=== PATIENT | female | born 1975 | race Caucasian/White ===

== ENCOUNTER → 2022-01-08 09:58 | Outpatient (BNVA) | payer OTHER, SELFPAY | PROVIDERS: Visit Provider Internal Medicine Rheumatology | DX: Z79.899 Other long term (current) drug therapy (principal); R76.8 Other specified abnormal immunological findings in serum; Z82.69 Family history of other diseases of the musculoskeletal system and connective tissue; M54.9 Dorsalgia, unspecified; M45.6 Ankylosing spondylitis lumbar region; M19.90 Unspecified osteoarthritis, unspecified site; M54.89 Other dorsalgia | CPT/HCPCS: 36415; 72040; 72100; 72170; 85651; 86140; 86812 ==

== ENCOUNTER 2023-09-14 09:26 | Outpatient (CLI) | payer OTHER, SELFPAY ==
[2023-09-14 09:39] LABS: Basophils # 0.1 10^3/uL (0.0-0.1); Basophils % 0.9 %; Eosinophils # 0.1 10^3/uL (0.0-0.8); Eosinophils % 1.5 %; Hematocrit 42.5 % (36-47); Lymphocytes # 1.9 10^3/uL (0.8-4.8); Lymphocytes % 24.5 %; Mean Corpuscular HGB Conc 32.9 g/dL (30-55); Mean Corpuscular Volume 94.2 fl (85-98); Mean Platelet Volume 9.5 fL (7.4-10.4); Monocytes # 0.5 10^3/uL (0.2-0.9); Monocytes % 6.9 %; Neutrophils # 5.01 10^3/uL (1.8-7.7); Neutrophils % 66.1 %; Nucleated Red Blood Cells % 0 %; Platelet Count 310 10^3/cmm (157-399); Red Blood Count 4.51 10^6/uL (3.85-5.65); Red Cell Distribution Width 13.3 % (12.1-15.1); White Blood Count 7.58 10^3/uL (3.29-11.43)
[2023-09-14 10:06] LABS: Alanine Aminotransferase 14 U/L (0-33); Albumin Level 4.4 g/dL (3.5-5.2); Alkaline Phosphatase 74 U/L (35-105); Blood Urea Nitrogen 15 mg/dL (6-20); Calcium 9.6 mg/dL (8.5-10.5); Carbon Dioxide 28 mmol/L (22-29); Chloride 100 mmol/L (98-107); Cholesterol 245 mg/dL (0-200); Globulin 3.2 g/dL (1.3-4.6); Glomerular Filtration Rate 66.8 mL/min (90-130); Glucose 89 mg/dL (65-115); HDL Cholesterol 72 mg/dL (60-100); LDL Cholesterol Calculated 154 mg/dL (50-129); LDL HDL Ratio 2.14 RATIO (0.00-3.22); Osmolality Calculated 284 mOsm/kg (285-295); Sodium 137 mmol/L (136-145); Total Bilirubin 0.4 mg/dL (0.15-1.2); Total Protein 7.6 g/dL (6.6-8.7); Triglycerides 93 mg/dL (0-150)
[2023-09-14 10:13] LABS: Anion Gap 13.8 (5-19); Aspartate Amino Transferase 23 U/L (0-32); Potassium 4.8 mmol/L (3.5-5.1)
[2023-09-14 10:38] LABS: Thyroid Stimulating Hormone 1.81 uIU/mL (0.27-4.20)
== END 2023-09-14 09:27 | disposition home or self-care (01) ==
LOC: LAB 09:27
PROVIDERS: PCP Family Medicine; Visit Provider Physician Assistant
DX: I10 Essential (primary) hypertension (principal)
CPT/HCPCS: 36415; 80053; 80061; 84443; 85025

== ENCOUNTER 2024-03-09 08:18 | Outpatient (CLI) | payer OTHER, SELFPAY ==
[2024-03-09 09:36] LABS: Basophils # 0.1 10^3/uL (0.0-0.1); Basophils % 0.7 %; Eosinophils # 0.1 10^3/uL (0.0-0.8); Eosinophils % 1.8 %; Hematocrit 40.1 % (36-47); Lymphocytes # 1.5 10^3/uL (0.8-4.8); Lymphocytes % 22.3 %; Mean Corpuscular HGB Conc 33.7 g/dL (30-55); Mean Corpuscular Hemoglobin 31.5 pg (27-33); Mean Corpuscular Volume 93.5 fl (85-98); Mean Platelet Volume 10.3 fL (7.4-10.4); Monocytes # 0.5 10^3/uL (0.2-0.9); Neutrophils # 4.65 10^3/uL (1.8-7.7); Neutrophils % 67.9 %; Nucleated Red Blood Cells % 0 %; Platelet Count 286 10^3/cmm (157-399); Red Blood Count 4.29 10^6/uL (3.85-5.65); Red Cell Distribution Width 13.5 % (12.1-15.1); White Blood Count 6.85 10^3/uL (3.29-11.43)
[2024-03-09 09:38] LABS: Alanine Aminotransferase 10 U/L (0-33); Albumin Level 4.3 g/dL (3.5-5.2); Alkaline Phosphatase 65 U/L (35-105); Aspartate Amino Transferase 19 U/L (0-32); Globulin 2.7 g/dL (1.3-4.6); Glomerular Filtration Rate 59.2 mL/min (90-130); Total Bilirubin 0.3 mg/dL (0.15-1.2)
[2024-03-09 09:43] LABS: Erythrocyte Sedimentation Rate 8 mm/hr (0-15)
== END 2024-03-09 08:19 | disposition home or self-care (01) ==
LOC: LAB 08:20
PROVIDERS: PCP Physician Assistant; Visit Provider Internal Medicine Rheumatology
DX: M19.90 Unspecified osteoarthritis, unspecified site (principal)
CPT/HCPCS: 36415; 80076; 82565; 85025; 85651; 86140

== ENCOUNTER → 2024-04-27 09:42 | Outpatient (BNVA) | payer OTHER, SELFPAY | PROVIDERS: PCP Family Medicine; Visit Provider Family Medicine | DX: N18.31 Chronic kidney disease, stage 3a (principal); M25.562 Pain in left knee | CPT/HCPCS: 73562; 80053 ==

== ENCOUNTER → 2024-06-01 14:44 | Outpatient (BNVA) | payer OTHER, SELFPAY | PROVIDERS: PCP Family Medicine; Visit Provider Student in an Organized Health Care Education/Training Program | DX: M25.562 Pain in left knee (principal); M23.92 Unspecified internal derangement of left knee | CPT/HCPCS: 73560; 73565 ==

== ENCOUNTER → 2024-07-04 11:54 | Outpatient (BNVA) | payer OTHER, SELFPAY | PROVIDERS: PCP Family Medicine; Visit Provider Internal Medicine Rheumatology | DX: R76.8 Other specified abnormal immunological findings in serum (principal) | CPT/HCPCS: 36415; 72100; 72202; 73630; 86160; 86162; 86235; 86255; 86376; 86800 ==

== ENCOUNTER 2025-01-30 11:05 | Outpatient (CLI) | payer OTHER, SELFPAY ==
[2025-01-30 12:30] LABS: Basophils % 0.6 %; Eosinophils # 0.1 10^3/uL (0.0-0.8); Eosinophils % 1.1 %; Hematocrit 41.7 % (36-47); Lymphocytes # 1.6 10^3/uL (0.8-4.8); Lymphocytes % 25.3 %; Mean Corpuscular HGB Conc 32.9 g/dL (30-55); Mean Corpuscular Hemoglobin 30.9 pg (27-33); Mean Corpuscular Volume 93.9 fl (85-98); Mean Platelet Volume 9.6 fL (7.4-10.4); Monocytes # 0.4 10^3/uL (0.2-0.9); Monocytes % 6.9 %; Neutrophils # 4.19 10^3/uL (1.8-7.7); Neutrophils % 65.8 %; Nucleated Red Blood Cells % 0 %; Platelet Count 229 10^3/cmm (157-399); Red Blood Count 4.44 10^6/uL (3.85-5.65); Red Cell Distribution Width 13.2 % (12.1-15.1); White Blood Count 6.37 10^3/uL (3.29-11.43)
[2025-01-30 12:50] LABS: Estmated Average Glucose 100; Hemoglobin A1C 5.1 % (4.0-6.0)
[2025-01-30 13:06] LABS: Alanine Aminotransferase 11 U/L (0-33); Albumin Level 4.4 g/dL (3.5-5.2); Alkaline Phosphatase 62 U/L (35-105); Anion Gap 13.1 (5-19); Aspartate Amino Transferase 16 U/L (0-32); Blood Urea Nitrogen 18 mg/dL (6-20); Calcium 9.3 mg/dL (8.5-10.5); Carbon Dioxide 28 mmol/L (22-29); Chloride 101 mmol/L (98-107); Free T4 Free Thyroxine 1.29 ng/dL (0.82-1.77); Globulin 2.9 g/dL (1.3-4.6); Glomerular Filtration Rate 66.5 mL/min (90-130); Glucose 82 mg/dL (65-115); Osmolality Calculated 287 mOsm/kg (285-295); Potassium 4.1 mmol/L (3.5-5.1); Sodium 138 mmol/L (136-145); Thyroid Stimulating Hormone 1.56 uIU/mL (0.27-4.20); Total Bilirubin 0.2 mg/dL (0.15-1.2); Total Protein 7.3 g/dL (6.6-8.7)
[2025-01-31 07:04] LABS: T3 Total 100 ng/dL (76-181)
== END 2025-01-30 11:06 | disposition home or self-care (01) ==
PROVIDERS: PCP Nurse Practitioner Family; Visit Provider Nurse Practitioner Family
DX: R76.8 Other specified abnormal immunological findings in serum (principal); Z76.89 Persons encountering health services in other specified circumstances; I10 Essential (primary) hypertension; M25.50 Pain in unspecified joint; G89.29 Other chronic pain; E66.811 Obesity, class 1
CPT/HCPCS: 36415; 80053; 83036; 84439; 84443; 84480; 85025

== ENCOUNTER 2025-02-13 07:16 | Outpatient (CLI) | payer OTHER, SELFPAY ==
--- NOTE | 2025-02-13 07:24 | US_ITS ---
WS: [id number] THYROID ULTRASOUND HISTORY: ANTI-TPO ANTIBODIES PRESENT COMPARISON: None available. Right lobe: 1.2 cm x 1.8 cm x 3.2 cm (w x ap x l). Volume: 3.3 cm3. Normal sized gland. Isoechoic nodule in the central gland. There is significant increased vascularity throughout this nodule. Nodule measures 1.0 x 0.9 x 1.2 cm. No echogenic foci. Left lobe: 1.3 cm x 1.1 cm x 3.2 cm (w x ap x l). Volume: 2.2 cm3. Normal size and echotexture. No significant or dominant nodules are present. Isthmus: 0.2 cm. US/US thyroid [id number] IMPRESSION: 1. TI-RADS 2; mid RIGHT thyroid nodule. No follow-up necessary. 2. Negative LEFT thyroid.
== END 2025-02-13 07:17 | disposition home or self-care (01) ==
PROVIDERS: PCP Nurse Practitioner Family; Visit Provider Nurse Practitioner Family
DX: R76.8 Other specified abnormal immunological findings in serum (principal); E04.1 Nontoxic single thyroid nodule
CPT/HCPCS: 76536

== ENCOUNTER 2025-07-25 13:27 | Outpatient (CLI) | payer OTHER, SELFPAY ==
[2025-07-26 16:50] LABS: Almond Classification 0; Brazil Nut (F18) IgE <0.10 kU/L; Brazil Nut Classification 0; Cashew Nut Classification 0; Codfish (F3) IgE Class 0; Cow's Milk Classification 0; Hazel Nut (F17) IgE <0.10 kU/L; Hazel Nut Classification 0; Macadamia Nut <0.10 kU/L; Macadamia Nut Classification 0; Peanut (F13) IgE <0.10 kU/L; Peanut (F13) IgE Class 0; Salmon (F41) IgE <0.10 kU/L; Salmon Classification 0; Scallop (F338) IgE <0.10 kU/L; Scallop Classification 0; Sesame Classification 0; Sesame Seed (F10) IgE <0.10 kU/L; Shrimp (F24) IgE <0.10 kU/L; Tuna Classification 0; Walnut (256) Class 0; Walnut (256) IgE <0.10 kU/L
[2025-07-26 20:35] LABS: Beef (27) IgE <0.10 kU/L; Beef Class 0; Lamb (F88) IgE <0.10 kU/L; Lamb Class 0; Pork (F26) IgE <0.10 kU/L
== END 2025-07-25 13:28 | disposition home or self-care (01) ==
LOC: LAB 13:29
PROVIDERS: PCP Nurse Practitioner Family; Visit Provider Nurse Practitioner Family
DX: R10.84 Generalized abdominal pain (principal)
CPT/HCPCS: 36415; 86003; 86008

== ENCOUNTER 2025-08-27 12:55 | Outpatient (CLI) | payer OTHER, SELFPAY ==
[2025-08-27 13:42] LABS: Hematocrit 42.3 % (36-47); Hemoglobin 14.30 g/dL (11.27-16.99); Mean Corpuscular HGB Conc 33.8 g/dL (30-55); Mean Corpuscular Hemoglobin 30.8 pg (27-33); Mean Corpuscular Volume 91.0 fl (85-98); Nucleated Red Blood Cells % 0 %; Platelet Count 269 10^3/cmm (157-399); Red Blood Count 4.65 10^6/uL (3.85-5.65); White Blood Count 7.08 10^3/uL (3.29-11.43)
[2025-08-27 14:11] LABS: Estmated Average Glucose 94; Hemoglobin A1C 4.9 % (4.0-6.0)
[2025-08-27 14:14] LABS: Alanine Aminotransferase 16 U/L (0-33); Albumin Level 4.6 g/dL (3.5-5.2); Alkaline Phosphatase 70 U/L (35-105); Anion Gap 15.7 (5-19); Aspartate Amino Transferase 18 U/L (0-32); Blood Urea Nitrogen 15 mg/dL (6-20); Calcium 9.3 mg/dL (8.5-10.5); Carbon Dioxide 26 mmol/L (22-29); Chloride 101 mmol/L (98-107); Cholesterol 196 mg/dL (0-200); Globulin 2.9 g/dL (1.3-4.6); Glucose 85 mg/dL (65-115); HDL Cholesterol 74 mg/dL (60-100); Osmolality Calculated 288 mOsm/kg (285-295); Potassium 3.7 mmol/L (3.5-5.1); Sodium 139 mmol/L (136-145); Thyroid Stimulating Hormone 1.68 uIU/mL (0.27-4.20); Total Protein 7.5 g/dL (6.6-8.7); Triglycerides 51 mg/dL (0-150)
== END 2025-08-27 12:56 | disposition home or self-care (01) ==
PROVIDERS: PCP Nurse Practitioner Family; Visit Provider Nurse Practitioner Family
DX: Z78.0 Asymptomatic menopausal state (principal); E66.3 Overweight
CPT/HCPCS: 36415; 80053; 80061; 83036; 84443; 85025